=== PATIENT | male | born 1980 | race Caucasian/White ===

== ENCOUNTER 2023-04-22 08:12 | Outpatient (CLI) | payer OTHER, SELFPAY | END 2023-04-22 08:13 | disposition home or self-care (01) | LOC: NFLDREF 04-23 06:48 | PROVIDERS: PCP Family Medicine; Referring Provider Family Medicine; Visit Provider Emergency Medicine | DX: Z13.1 Encounter for screening for diabetes mellitus (principal); Z13.6 Encounter for screening for cardiovascular disorders | CPT/HCPCS: 80061; 82947 ==